=== PATIENT | female | born 1965 | race Caucasian/White ===

== ENCOUNTER 2021-04-06 07:18 | Emergency (ER) | payer OTHER ==
[~2021-04-06] VITALS: Ht 160 cm; Wt 112.4 kg
[2021-04-06 07:41] LABS: BASO # 0.1 x10^3/uL (0.0-0.2); BASO % 1 % (0-3); EOS # 0.4 x10^3/uL (0.0-0.7); EOS % 5 % (0-3); HEMATOCRIT 40.3 % (36.0-47.0); HEMOGLOBIN 13.6 g/dL (12.0-15.5); LYMPH # 1.5 x10^3/uL (1.0-4.8); LYMPH % 20 % (24-48); MEAN CORPUSCULAR HEMOGLOBIN 30 pg (25-35); MEAN CORPUSCULAR HGB CONC 34 g/dL (31-37); MEAN CORPUSCULAR VOLUME 89 fL (79-100); MONO # 0.5 x10^3/uL (0.0-1.1); MONO % 7 % (0-9); NEUT # 5.1 x10^3uL (1.8-7.7); NEUT % 67 % (31-73); PLATELET COUNT 299 x10^3/uL (140-400); RED BLOOD COUNT 4.54 x10^6/uL (3.50-5.40); WHITE BLOOD COUNT 7.6 x10^3/uL (4.0-11.0)
--- NOTE | 2021-04-06 07:43 | RAD ---
CT STROKE HEAD W/O Date: 04/06/2021 7:36 AM Clinical Indication: dysarthria, left leg weakness Comparison: 08/23/2015. Technique: 5 mm axial tomographic images were obtained of the head without contrast. These were view ed on brain and bone windows. One or more of the following dose reduction techniques were utilized: A utomated exposure control (AEC), Adjustment of mA and/or kV according to patient size, Use of iterati ve reconstruction technique such as ASiR, CT scan done according to ALARA and image gently/image adler ly Findings: The brain parenchyma is normal in attenuation. No intra- or extra-axial mass or fluid collection. No acute hemorrhage. The ventricles are normal in size, shape, and morphology. The rooney-white matter tabitha ction is normal. The subarachnoid cisterns are patent. The visualized paranasal sinuses are normal. The visualized portions of the orbits and globes are no rmal. The mastoid air cells are clear. The university archivist topogram shows no lytic lesion or fracture. Impression: No acute hemorrhage or large territory rooney-white loss. FOR INTERNAL CODING PURPOSES Critical result: Findings discussed with Dr. Hurtado at 04/06/2021 7:38 AM. RESULT CODE: (C) Electronically signed by: Mikael Kiser MD (04/06/2021 7:40 AM) [id number]
[2021-04-06 07:49] LABS: CALCIUM 9.4 mg/dL (8.5-10.1); CREATININE 0.9 mg/dL (0.6-1.0); GFR 65.2; POTASSIUM 4.3 mmol/L (3.5-5.1)
[2021-04-06 07:55] LABS: ALBUMIN 3.9 g/dL (3.4-5.0); ALBUMIN/GLOBULIN RATIO 0.9 (1.0-1.7); TOTAL BILIRUBIN 0.4 mg/dL (0.2-1.0); TOTAL PROTEIN 8.2 g/dL (6.4-8.2)
--- NOTE | 2021-04-06 07:58 | EKG ---
[address] [address] Test Date: 2021-04-06 Test Time: 07:38:07 Pat Name: ORLANDO ERICKSON Department: Room: Gender: F Supply Person: CATHY : 1965 Requested By: ESTRELLA BURTON Order Number: [id number] Reading MD: Measurements Intervals [place] Rate: 92 P: 41 [place]: 174 QRS: 9 QRSD: 98 T: 47 QT: 376 QTc: 470 Interpretive Statements SINUS RHYTHM R-S TRANSITION ZONE IN V LEADS DISPLACED TO THE LEFT OTHERWISE NORMAL ECG RI6.02 No previous ECG available for comparison
--- NOTE | 2021-04-06 08:12 | RAD ---
XR CHEST 1V History: Reason: STROKE SYMPTOMS / Spl. Instructions: / History: Comparison: None. Findings: Low lung volumes. No consolidation or pleural effusion. Normal heart size. No pneumothorax. Impression: 1. No acute cardiopulmonary process. Electronically signed by: Rodger Villarreal DO (04/06/2021 8:10 AM) [id number]
--- NOTE | 2021-04-06 08:21 | PHYS DOC ---
Past History Past Medical History: Diabetes Additional Past Medical Histor: Visual impairment. "stress coma" Past Surgical History: No Surgical History Alcohol Use: None Drug Use: None General Adult EDM: Chief Complaint: ALTERED MENTAL STATUS HPI: HPI: 55-year-old female presents by private vehicle as a code stroke. Patient was having dysarthria and left leg weakness. She was able to nod and answer questions. She was moving all 4 extremities. The patient was able to answer questions verbally but it took her some time to articulate the words. Patient states she has had a stroke work-up in the past. She has had symptoms like this previously. Additional history from the family that accompanies her is that the patient is irritating stress reactions on occasion where she will be unable to function. The patient does not have a formal stroke history. She has not been feeling ill. Denies fever or chills. Review of Systems: Review of Systems: Constitutional: Denies fever or chills Eyes: Denies change in visual acuity HENT: Denies nasal congestion or sore throat Respiratory: Denies cough or shortness of breath Cardiovascular: Denies chest pain or edema GI: Denies abdominal pain, nausea, vomiting, bloody stools or diarrhea : Denies dysuria Musculoskeletal: Denies back pain or joint pain Integument: Denies rash Neurologic: Headache. Left leg weakness, dysarthria Endocrine: Denies polyuria or polydipsia Lymphatic: Denies swollen glands Psychiatric: anxiety Allergies: Allergies: Allergies Coded Allergies Type Severity Reaction Last Updated Verified No Known Drug Allergies 08/23/15 No Physical Exam: PE: Constitutional: Well developed, well nourished, morbidly obese, no acute distress, non-toxic appearance. [] HENT: Normocephalic, atraumatic, bilateral external ears normal, oropharynx moist, no oral exudates, nose normal. [] Eyes: PERRLA, EOMI, conjunctiva normal, no discharge. [] Neck: No tenderness, supple, no stridor. [] Cardiovascular: Heart rate 92, regular rhythm, no murmur [] Lungs & Thorax: Bilateral breath sounds clear to auscultation [] Abdomen: Bowel sounds normal, soft, no tenderness, no masses, no pulsatile masses. [] Skin: Warm, dry, no erythema, no rash. [] Back: No tenderness. [] Extremities: No tenderness, no cyanosis, no clubbing, no edema. [] Neurologic: Alert and oriented X 3, moves all 4 extremities, slurred speech [] Psychologic: Affect normal, judgement normal, mood anxious. [] Current Patient Data: Labs: Laboratory Tests Test 04/06/21 07:26 04/06/21 07:31 White Blood Count 7.6 x10^3/uL (4.0-11.0) Red Blood Count 4.54 x10^6/uL (3.50-5.40) Hemoglobin 13.6 g/dL (12.0-15.5) Hematocrit 40.3 % (36.0-47.0) Mean Corpuscular Volume 89 fL (79-100) Mean Corpuscular Hemoglobin 30 pg (25-35) Mean Corpuscular Hemoglobin Concent 34 g/dL (31-37) Red Cell Distribution Width 14.0 % (11.5-14.5) Platelet Count 299 x10^3/uL (140-400) Neutrophils (%) (Auto) 67 % (31-73) Lymphocytes (%) (Auto) 20 % (24-48) L Monocytes (%) (Auto) 7 % (0-9) Eosinophils (%) (Auto) 5 % (0-3) H Basophils (%) (Auto) 1 % (0-3) Neutrophils # (Auto) 5.1 x10^3uL (1.8-7.7) Lymphocytes # (Auto) 1.5 x10^3/uL (1.0-4.8) Monocytes # (Auto) 0.5 x10^3/uL (0.0-1.1) Eosinophils # (Auto) 0.4 x10^3/uL (0.0-0.7) Basophils # (Auto) 0.1 x10^3/uL (0.0-0.2) Prothrombin Time 9.7 SEC (9.4-11.4) Prothrombin Time INR 0.9 (0.9-1.1) Activated Partial Thromboplast Time 23 SEC (23-33) Sodium Level 140 mmol/L (136-145) Potassium Level 4.3 mmol/L (3.5-5.1) Chloride Level 103 mmol/L (98-107) Carbon Dioxide Level 24 mmol/L (21-32) Anion Gap 13 (6-14) Blood Urea Nitrogen 21 mg/dL (7-20) H Creatinine 0.9 mg/dL (0.6-1.0) Estimated GFR (Cockcroft-Gault) 65.2 BUN/Creatinine Ratio 23 (6-20) H Glucose Level 248 mg/dL (70-99) H Calcium Level 9.4 mg/dL (8.5-10.1) Total Bilirubin 0.4 mg/dL (0.2-1.0) Aspartate Amino Transferase (AST) 9 U/L (15-37) L Alanine Aminotransferase (ALT) 21 U/L (14-59) Alkaline Phosphatase 98 U/L (46-116) Total Protein 8.2 g/dL (6.4-8.2) Albumin 3.9 g/dL (3.4-5.0) Albumin/Globulin Ratio 0.9 (1.0-1.7) L Glucose (Fingerstick) 257 mg/dL (70-99) H Vital Signs: Vital Signs Date Time Temp Pulse Resp B/P (MAP) Pulse Ox O2 Delivery O2 Flow Rate FiO2 04/06/21 07:18 97.8 106 18 200/116 (144) 98 EKG: EKG: Sinus rhythm, rate 92, normal axis no ST elevation or depression. [] Radiology/Procedures: Radiology/Procedures: [] Impressions: CT STROKE HEAD W/O Date: 04/06/2021 7:36 AM Clinical Indication: dysarthria, left leg weakness Comparison: 08/23/2015. Technique: 5 mm axial tomographic images were obtained of the head without contrast. These were viewed on brain and bone windows. One or more of the following dose reduction techniques were utilized: Automated exposure control (AEC), Adjustment of mA and/or kV according to patient size, Use of iterative reconstruction technique such as ASiR, CT scan done according to ALARA and image gently/image wisely Findings: The brain parenchyma is normal in attenuation. No intra- or extra-axial mass or fluid collection. No acute hemorrhage. The ventricles are normal in size, shape, and morphology. The rooney-white matter junction is normal. The subarachnoid cisterns are patent. The visualized paranasal sinuses are normal. The visualized portions of the orbits and globes are normal. The mastoid air cells are clear. The refinery operator polymerization plant topogram shows no lytic lesion or fracture. Impression: No acute hemorrhage or large territory rooney-white loss. FOR INTERNAL CODING PURPOSES Critical result: Findings discussed with Dr. Burton at 04/06/2021 7:38 AM. RESULT CODE: (C) Electronically signed by: Cora Kiser MD (04/06/2021 7:40 AM) [id number] DICTATED AND SIGNED BY: CORA KISER MD DATE: 04/06/21737 CC: ESTRELLA BURTON DO; PCP,NO ~MTH0 0 XR CHEST 1V History: Reason: STROKE SYMPTOMS / Spl. Instructions: / History: Comparison: None. Findings: Low lung volumes. No consolidation or pleural effusion. Normal heart size. No pneumothorax. Impression: 1. No acute cardiopulmonary process. Electronically signed by: Rodger Elliott DO (04/06/2021 8:10 AM) [id number] DICTATED AND SIGNED BY: RODGER ELLIOTT DO DATE: 04/06/21808 CC: ESTRELLA BURTON DO; PCP,NO ~MTH0 0 Heart Score: C/O Chest Pain: N/A Risk Factors: Risk Factors: DM, Current or recent (<one month) smoker, HTN, HLP, family history of CAD, obesity. Risk Scores: Score 0 - 3: 2.5% MACE over next 6 weeks - Discharge Home Score 4 - 6: 20.3% MACE over next 6 weeks - Admit for Clinical Observation Score 7 - 10: 72.7% MACE over next 6 weeks - Early Invasive Strategies Course & Med Decision Making: Course & Med Decision Making Pertinent Labs and Imaging studies reviewed. (See chart for details) On arrival the patient was able to answer questions, but had slight word finding difficulty moderate to severe difficulty articulating the words. Initial blood pressure was 200s over 1 teens. She had drift of the left leg. Just prior to going to CT, her speech and facial numbness significantly improved. She was able to speak almost normally and she stated that she felt better. Her blood pressure had improved to the 180s. CT was negative for acute findings. The patient's blood pressure has significantly improved without intervention. Her labs are unremarkable except for an elevated glucose with a normal gap. The patient states that she feels much better and now wants to go home. Her stroke symptoms have completely resolved. I do not have an overriding reason for the patient to stay in the hospital. She is stable for discharge at this time. [] Osei Disclaimer: Osei Disclaimer: This electronic medical record was generated, in whole or in part, using a voice recognition dictation system. NIH Stroke Scale: NIH Stroke Scale Response (Comments) Value Level of Consciousness: 0 Alert/Responsive 0 LOC Questions: 0 Answers both correctly 0 LOC Commands: 0 Performs both tasks 0 Best Gaze: 0 Normal 0 Visual: 0 No visual loss 0 Facial Palsy: 1 Minor paralysis 1 Motor - Left Arm 0 No drift 0 Motor - Right Arm 0 No drift 0 Motor - Left Leg 1 Drift but can hold 1 Motor: Right Leg 0 No drift 0 Limb Ataxia: 0 Absent 0 Best Language: 1 Mild to mod aphasia 1 Dysathria: 1 Mild to moderate 1 Extinction and Inattention: 0 Normal 0 Total 4 Departure Departure: Impression: Primary Impression: TIA (transient ischemic attack) Additional Impressions: Conversion disorder Hypertension Hyperglycemia Disposition: 01 HOME / SELF CARE / HOMELESS Condition: IMPROVED Referrals: PCPMAHIN (PCP) Patient Instructions: Transient Ischemic Attack, [id number] ESTRELLA BURTON DO Apr 06, 2021 08:21
[2021-04-06 08:45] VITALS: BP 162/82
== END 2021-04-06 08:55 | disposition home or self-care (01) ==
LOC: ER 07:18
DX: G45.9 Transient cerebral ischemic attack, unspecified (principal); F44.9 Dissociative and conversion disorder, unspecified; I10 Essential (primary) hypertension; E11.65 Type 2 diabetes mellitus with hyperglycemia; Z86.73 Personal history of transient ischemic attack (TIA), and cerebral infarction without residual deficits
CPT/HCPCS: 36415; 70450; 71045; 80053; 82947; 85025; 85610; 85730; 93005; 99285-25